=== PATIENT | female | born 1935 | race African-American/Black ===

== ENCOUNTER 2018-10-03 14:10 | Emergency (ER) | payer SELFPAY ==
[~2018-10-03] VITALS: Ht 149.9 cm; Wt 52.0 kg
[2018-10-03] MEDS ORDERED: AMLODIPINE 5MG TABLET PO ONE (16:15)
[2018-10-03] MEDS ORDERED: CLONIDINE 0.2MG TABLET PO ONE (18:15)
[2018-10-03 21:27] VITALS: BP 98/51
== END 2018-10-03 23:30 | disposition home or self-care (01) ==
LOC: ER 14:10
DX: M84.444A Pathological fracture, right finger(s), initial encounter for fracture (principal); I16.0 Hypertensive urgency; M19.90 Unspecified osteoarthritis, unspecified site; E11.9 Type 2 diabetes mellitus without complications; I25.119 Atherosclerotic heart disease of native coronary artery with unspecified angina pectoris; I50.9 Heart failure, unspecified; F03.90 Unspecified dementia, unspecified severity, without behavioral disturbance, psychotic disturbance, mood disturbance, and anxiety; Z88.0 Allergy status to penicillin
CPT/HCPCS: 29130; 73140; 99283

== ENCOUNTER 2018-10-06 20:05 | Inpatient (IN) | payer MEDICARE ==
[~2018-10-06] VITALS: Ht 157.5 cm; Wt 56.2 kg
[2018-10-06] MEDS ORDERED: SODIUM CHLORIDE 0.9% 1,000 ML IV ONE (21:24)
[2018-10-06 23:07] LABS: BASOPHILS % 0.3 % (0.0-2.0); HEMATOCRIT. 33.1 % (36.0-48.0); HEMOGLOBIN. 10.9 g/dL (12.0-16.0); MEAN CORPUSCULAR HEMOGLOBIN 29.1 pg (28.0-32.0); MEAN CORPUSCULAR VOLUME 88.4 fL (81.0-99.0); MEAN PLATELET VOLUME 8.6 fl (7.4-10.4); MONOCYTES % 2.2 % (2.0-8.0); NEUTROPHILS % 89.5 % (40.0-76.0); PLATELET 278 x1000/uL (130-400); RED BLOOD CELL COUNT 3.74 mill/uL (4.2-5.4); RED CELL DISTRIBUTION WIDTH 14.3 % (11.6-14.6)
[2018-10-06 23:10] LABS: CHLORIDE 106 mEq/L (98-107)
[2018-10-06] MEDS ORDERED: AZITHROMYCIN 500 MG in DEXT 5% WATER 250 ML IV NR (23:45)
[2018-10-06] MEDS ORDERED: SODIUM CHLORIDE 0.9% 1000ML BAG (SEPSIS BOLUS) IV NR (23:45)
[2018-10-06 23:58] LABS: CLARITY URINE TURBID (CLEAR); COLOR URINE YELLOW (YELLOW); KETONES URINE 1+ (NEGATIVE); LEUKOCYTE ESTERASE URINE 3+ (NEGATIVE); NITRITE URINE NEGATIVE (NEGATIVE); OCCULT BLOOD URINE 3+ (NEGATIVE); PROTEIN URINE 2+ (NEGATIVE); UROBILINOGEN URINE 0.2 E.U./dL (0.2-1.0)
[2018-10-07] VITALS (8 sets, daily range): BP systolic 109–169; BP diastolic 59–83
[2018-10-07] MEDS ORDERED: MEROPENEM 1,000 MG in SODIUM CHLORIDE 0.9% 100 ML IV SCH (01:30)
[2018-10-07] MEDS ORDERED: PANTOPRAZOLE 80 MG in SODIUM CHLORIDE 0.9% 100 ML IV SCH (02:00)
[2018-10-07] MEDS ORDERED: ONDANSETRON HCL 4MG/2ML INJ IM ONE (04:30)
[2018-10-07] MEDS ORDERED: DIPHENHYDRAMINE 50MG/ML VIAL IV PRN (04:45)
[2018-10-07] MEDS ORDERED: DEXTROSE 50% WATER 50ML SYRINGE IV PRN (04:45)
[2018-10-07] MEDS ORDERED: IPRATROPIUM/ALBUTEROL 0.5-3(2.5)MG/3ML NEB INH PRN (04:45)
[2018-10-07] MEDS ORDERED: GUAIFENESIN 200MG/10ML SUGAR FREE UDC PO PRN (04:45)
[2018-10-07] MEDS ORDERED: LORAZEPAM 2MG/ML CPJ IV PRN (04:45)
[2018-10-07] MEDS: BLOOD SUGAR DIAGNOSTIC STRIP TEST SCH ×4 (07:30→21:13)
[2018-10-07] MEDS: SODIUM CHLORIDE 0.9% 1,000 ML IV SCH ×2 (07:43→18:12)
[2018-10-07] MEDS: FAMOTIDINE 20MG/2ML VIAL IV SCH (08:38)
[2018-10-07] MEDS: ENOXAPARIN 30MG/0.3ML SYR SUBCUT SCH (08:39)
[2018-10-07] MEDS: INSULIN LISPRO 100 UNITS/ML SUBCUT SCH ×3 (08:54→21:00)
[2018-10-07] MEDS: MEROPENEM 1,000 MG in SODIUM CHLORIDE 0.9% 100 ML IV SCH (15:38)
[2018-10-07] MEDS: BISACODYL 10MG SUPP PR NR ×2 (20:15→22:29)
[2018-10-07] MEDS: ONDANSETRON HCL 4MG/2ML INJ IV PRN (22:01)
[2018-10-08] VITALS (12 sets, daily range): BP systolic 102–157; BP diastolic 38–69
[2018-10-08] MEDS: MEROPENEM 1,000 MG in SODIUM CHLORIDE 0.9% 100 ML IV SCH (02:33)
[2018-10-08] MEDS: SODIUM CHLORIDE 0.9% 1,000 ML IV SCH (02:33)
[2018-10-08] MEDS: ONDANSETRON HCL 4MG/2ML INJ IV PRN ×2 (04:09→08:17)
[2018-10-08] MEDS: BLOOD SUGAR DIAGNOSTIC STRIP TEST SCH ×4 (07:30→21:53)
[2018-10-08 07:33] LABS: BASOPHILS % 1.1 % (0.0-2.0); HEMATOCRIT. 30.5 % (36.0-48.0); LYMPHOCYTES % 13.5 % (20.0-50.0); MEAN CORPUSCULAR VOLUME 88.2 fL (81.0-99.0); MONOCYTES % 5.5 % (2.0-8.0); NEUTROPHILS % 79.9 % (40.0-76.0); PLATELET 266 x1000/uL (130-400); RED BLOOD CELL COUNT 3.45 mill/uL (4.2-5.4); RED CELL DISTRIBUTION WIDTH 14.6 % (11.6-14.6)
[2018-10-08] MEDS: INSULIN LISPRO 100 UNITS/ML SUBCUT SCH ×4 (08:00→21:55)
[2018-10-08 08:11] LABS: PHOSPHORUS 2.7 mg/dL (2.5-4.9)
[2018-10-08] MEDS: FAMOTIDINE 20MG/2ML VIAL IV SCH (08:17)
[2018-10-08] MEDS: ENOXAPARIN 30MG/0.3ML SYR SUBCUT SCH (08:17)
[2018-10-08] MEDS ORDERED: LEVOFLOXACIN 500MG PREMIX 100 ML IV SCH ×2 (13:15→16:00)
[2018-10-08] MEDS: DEXT 5%/0.2% NACL 1,000 ML IV SCH (13:38)
[2018-10-08] MEDS: ACETAMINOPHEN 325MG TABLET PO PRN (21:57)
[2018-10-08] MEDS: INSULIN GLARGINE UD 100 UNITS/ML SYR SUBCUT SCH (22:24)
[2018-10-09] VITALS (12 sets, daily range): BP systolic 132–192; BP diastolic 45–81
[2018-10-09] MEDS: ONDANSETRON HCL 4MG/2ML INJ IV PRN ×2 (00:46→13:54)
[2018-10-09] MEDS: DEXT 5%/0.2% NACL 1,000 ML IV SCH ×2 (04:29→17:36)
[2018-10-09] MEDS: ACETAMINOPHEN 325MG TABLET PO PRN ×2 (04:29→08:41)
[2018-10-09] MEDS: BLOOD SUGAR DIAGNOSTIC STRIP TEST SCH ×4 (07:30→21:51)
[2018-10-09] MEDS: FAMOTIDINE 20MG/2ML VIAL IV SCH (08:32)
[2018-10-09] MEDS: ENOXAPARIN 30MG/0.3ML SYR SUBCUT SCH (08:32)
[2018-10-09] MEDS: INSULIN LISPRO 100 UNITS/ML SUBCUT SCH ×4 (08:35→21:59)
[2018-10-09] MEDS: LEVOFLOXACIN 250MG PREMIX 50 ML IV SCH (10:16)
[2018-10-09] MEDS ORDERED: HYDRALAZINE 20MG/ML VIAL IV PRN (11:00)
[2018-10-09] MEDS ORDERED: POTASSIUM CHLORIDE 20MEQ/PACKET PO NR (16:00)
[2018-10-09] MEDS: INSULIN GLARGINE UD 100 UNITS/ML SYR SUBCUT SCH (21:58)
[2018-10-09] MEDS: HYDRALAZINE HCL 25MG TABLET PO SCH (22:00)
[2018-10-10] VITALS (10 sets, daily range): BP systolic 90–127; BP diastolic 42–59
[2018-10-10] MEDS: DEXT 5%/0.2% NACL 1,000 ML IV SCH (06:49)
[2018-10-10] MEDS: HYDRALAZINE HCL 25MG TABLET PO SCH ×2 (06:50→13:15)
[2018-10-10] MEDS: BLOOD SUGAR DIAGNOSTIC STRIP TEST SCH ×3 (07:30→17:05)
[2018-10-10] MEDS: INSULIN LISPRO 100 UNITS/ML SUBCUT SCH ×3 (08:00→17:22)
[2018-10-10] MEDS: FAMOTIDINE 20MG/2ML VIAL IV SCH (09:23)
[2018-10-10] MEDS: ENOXAPARIN 30MG/0.3ML SYR SUBCUT SCH (09:24)
[2018-10-10] MEDS: ONDANSETRON HCL 4MG/2ML INJ IV PRN (11:06)
[2018-10-10] MEDS: LEVOFLOXACIN 250MG PREMIX 50 ML IV SCH (11:06)
[2018-10-11] MEDS ORDERED: HYDRALAZINE HCL 25MG TABLET PO SCH (02:00)
[2018-10-11] MEDS ORDERED: LEVOFLOXACIN 250MG TABLET PO SCH (11:00)
== END 2018-10-10 19:35 | DRG 720 ==
LOC: ER 22:37 → EDBD 23:49 → 5EST 23:49 → EDBEDREQ 23:55 → EDBEDREQTM 23:55 → EDBEDREQSVC 10-07 01:27 → EDBEDREQTM 10-07 01:27 → EDBEDREQSVC 10-07 01:48 → EDBEDREQTM 10-07 01:48 → ENRESERV 10-07 03:04
PROVIDERS: ADMIT Internal Medicine; ATTEND Internal Medicine
DX: A41.9 Sepsis, unspecified organism (principal); E43 Unspecified severe protein-calorie malnutrition; N17.9 Acute kidney failure, unspecified; I50.9 Heart failure, unspecified; I11.0 Hypertensive heart disease with heart failure; E87.0 Hyperosmolality and hypernatremia; E11.9 Type 2 diabetes mellitus without complications; F03.90 Unspecified dementia, unspecified severity, without behavioral disturbance, psychotic disturbance, mood disturbance, and anxiety; N39.0 Urinary tract infection, site not specified; K56.41 Fecal impaction; R47.02 Dysphasia; I25.10 Atherosclerotic heart disease of native coronary artery without angina pectoris; M19.90 Unspecified osteoarthritis, unspecified site; Z90.49 Acquired absence of other specified parts of digestive tract; Z88.0 Allergy status to penicillin; Z86.14 Personal history of Methicillin resistant Staphylococcus aureus infection
CPT/HCPCS: 36415; 71045; 74177; 80048; 82962; 83605; 83735; 83880; 84100; 84145; 84484; 86850; 86900; 87077; 92610; 93005; 93970; 96365; 99291; C9113; J0360; J0456; J1650; J1815; J1956; J2185; J2405; J3490; J7030; J7050; J7060

== ENCOUNTER 2018-11-09 16:27 | Emergency (ER) | payer MEDICARE, MEDICAID ==
[~2018-11-09] VITALS: Ht 152.4 cm; Wt 65.0 kg
[2018-11-09 21:33] VITALS: BP 145/49
== END 2018-11-09 21:35 ==
LOC: ER 16:27 → SUPCPDRO 11-10 07:09
DX: M19.032 Primary osteoarthritis, left wrist (principal); I50.9 Heart failure, unspecified; E11.9 Type 2 diabetes mellitus without complications; F03.90 Unspecified dementia, unspecified severity, without behavioral disturbance, psychotic disturbance, mood disturbance, and anxiety; I25.10 Atherosclerotic heart disease of native coronary artery without angina pectoris; Z88.0 Allergy status to penicillin
CPT/HCPCS: 73110; 99283

== ENCOUNTER 2019-09-11 11:36 | Inpatient (IN) | payer MEDICARE, MEDICAID ==
[~2019-09-11] VITALS: Ht 149.9 cm; Wt 53.1 kg
[2019-09-11 12:35] LABS: BASOPHILS % 1.1 % (0.0-2.0); HEMATOCRIT. 39.4 % (36.0-48.0); HEMOGLOBIN. 12.7 g/dL (12.0-16.0); LYMPHOCYTES % 20.4 % (20.0-50.0); MEAN CORPUSCULAR HEMOGLOBIN 27.7 pg (28.0-32.0); MEAN CORPUSCULAR VOLUME 85.8 fL (81.0-99.0); MEAN PLATELET VOLUME 9.2 fl (7.4-10.4); MONOCYTES % 9.6 % (2.0-8.0); NEUTROPHILS % 67.9 % (40.0-76.0); PLATELET 253 x1000/uL (130-400); RED BLOOD CELL COUNT 4.59 mill/uL (4.2-5.4); RED CELL DISTRIBUTION WIDTH 14.8 % (11.6-14.6)
[2019-09-11 12:38] LABS: PROTHROMBIN TIME 10.7 sec (9.6-11.0)
[2019-09-11 12:39] LABS: CHLORIDE 109 mEq/L (98-107)
[2019-09-11 13:15] LABS: CLARITY URINE TURBID (CLEAR); COLOR URINE YELLOW (YELLOW); KETONES URINE NEGATIVE (NEGATIVE); LEUKOCYTE ESTERASE URINE 3+ (NEGATIVE); NITRITE URINE NEGATIVE (NEGATIVE); OCCULT BLOOD URINE 3+ (NEGATIVE); PH URINE 7.5 (4.5-8.0); PROTEIN URINE 3+ (NEGATIVE); SPECIFIC GRAVITY URINE 1.013 (1.005-1.030)
[2019-09-11] MEDS: SODIUM CHLORIDE 0.9% 1,000 ML IV SCH ×2 (13:24→17:40)
[2019-09-11] MEDS ORDERED: DOCUSATE SODIUM 100MG CAPSULE PO PRN (13:30)
[2019-09-11] MEDS ORDERED: IPRATROPIUM/ALBUTEROL 0.5-3(2.5)MG/3ML NEB ORI PRN (13:30)
[2019-09-11] MEDS ORDERED: MEROPENEM 1,000 MG in SODIUM CHLORIDE 0.9% 100 ML IV SCH (13:30)
[2019-09-11] MEDS ORDERED: MAGNESIUM/ALUMINUM HYDROXIDE/SIMETHICONE 30ML UDC PO PRN (13:30)
[2019-09-11] MEDS ORDERED: NITROGLYCERIN 0.4MG TABLET SL SL PRN (13:30)
[2019-09-11] MEDS ORDERED: ACETAMINOPHEN 325MG TABLET PO PRN (13:30)
[2019-09-11] MEDS ORDERED: GUAIFENESIN 200MG/10ML SUGAR FREE UDC PO PRN (13:30)
[2019-09-11] MEDS ORDERED: ENOXAPARIN 40MG/0.4ML SYR SUBCUT SCH (13:30)
[2019-09-11] MEDS ORDERED: DEXTROSE 50% WATER 50ML SYRINGE IV PRN (13:30)
[2019-09-11] MEDS ORDERED: LEVOFLOXACIN 750MG PREMIX 150 ML IV ONE (13:45)
[2019-09-11 13:55] LABS: TOTAL IRON BINDING CAPACITY 101 ug/dL (250-450)
[2019-09-11 14:12] LABS: FOLIC ACID (FOLATE) SERUM 15.6 ng/mL (>5.38)
[2019-09-11 14:20] VITALS: BP 128/78
[2019-09-11 16:15] VITALS: BP 128/78
[2019-09-11 16:30] VITALS: BP 132/80
[2019-09-11] MEDS: BLOOD SUGAR DIAGNOSTIC STRIP TEST SCH ×2 (17:30→21:00)
[2019-09-11] MEDS: INSULIN LISPRO 100 UNITS/ML SUBCUT SCH ×2 (17:34→21:00)
[2019-09-11 20:00] VITALS: BP 131/59
[2019-09-11] MEDS: ENOXAPARIN 30MG/0.3ML SYR SUBCUT SCH (20:00)
[2019-09-11] MEDS ORDERED: VANCOMYCIN 750 MG PREMIX 150 ML IV SCH (20:00)
[2019-09-11] MEDS: MEROPENEM 500MG in NORMAL SALINE 50ML IV SCH (22:03)
[2019-09-11] MEDS: ASCORBIC ACID 500 MG TABLET PO SCH (22:04)
[2019-09-12 00:01] VITALS: BP 128/50
[2019-09-12 04:00] VITALS: BP 141/56
[2019-09-12] MEDS: BLOOD SUGAR DIAGNOSTIC STRIP TEST SCH ×4 (06:45→20:45)
[2019-09-12] MEDS: INSULIN LISPRO 100 UNITS/ML SUBCUT SCH ×4 (06:45→21:00)
[2019-09-12] MEDS: SODIUM CHLORIDE 0.9% 1,000 ML IV SCH (06:46)
[2019-09-12] MEDS: MEROPENEM 500MG in NORMAL SALINE 50ML IV SCH ×2 (06:46→18:36)
[2019-09-12 08:00] VITALS: BP 128/57
[2019-09-12] MEDS: PANTOPRAZOLE SODIUM 40 MG/VIAL IV SCH (08:51)
[2019-09-12] MEDS: CLOPIDOGREL 75MG TABLET PO SCH (08:52)
[2019-09-12] MEDS: ZINC SULFATE 220 MG ( 50 ) CAPSULE PO SCH (08:52)
[2019-09-12] MEDS: ASCORBIC ACID 500 MG TABLET PO SCH ×2 (08:52→20:44)
[2019-09-12] MEDS: ONDANSETRON HCL 4MG/2ML INJ IV PRN (09:49)
[2019-09-12 12:00] VITALS: BP 126/47
[2019-09-12 16:00] VITALS: BP 164/71
[2019-09-12 20:00] VITALS: BP 155/67
[2019-09-12] MEDS: ENOXAPARIN 30MG/0.3ML SYR SUBCUT SCH (20:23)
[2019-09-12] MEDS: GUAIFENESIN 600MG ER TABLET PO SCH (20:44)
[2019-09-13] VITALS: BP 182/72
[2019-09-13 04:00] VITALS: BP 158/65
[2019-09-13] MEDS: MEROPENEM 500MG in NORMAL SALINE 50ML IV SCH ×2 (06:39→18:02)
[2019-09-13] MEDS: BLOOD SUGAR DIAGNOSTIC STRIP TEST SCH ×4 (06:40→22:05)
[2019-09-13] MEDS: INSULIN LISPRO 100 UNITS/ML SUBCUT SCH ×4 (06:48→21:00)
[2019-09-13 07:55] LABS: COVID-19 PCR RNA DETECTED
[2019-09-13 07:57] LABS: COVID-19 PCR RNA DETECTED
[2019-09-13 08:00] VITALS: BP 184/81
[2019-09-13 08:31] LABS: HEMATOCRIT. 29.9 % (36.0-48.0); HEMOGLOBIN. 9.7 g/dL (12.0-16.0); MEAN CORPUSCULAR HEMOGLOBIN 27.6 pg (28.0-32.0); MEAN CORPUSCULAR VOLUME 85.5 fL (81.0-99.0); MEAN PLATELET VOLUME 9.8 fl (7.4-10.4); PLATELET 189 x1000/uL (130-400); RED CELL DISTRIBUTION WIDTH 14.6 % (11.6-14.6)
[2019-09-13 08:37] LABS: CHLORIDE 119 mEq/L (98-107)
[2019-09-13] MEDS: PANTOPRAZOLE SODIUM 40 MG/VIAL IV SCH (09:33)
[2019-09-13] MEDS: CLONIDINE 0.1MG TABLET PO PRN (09:33)
[2019-09-13] MEDS: GUAIFENESIN 600MG ER TABLET PO SCH ×2 (09:34→22:05)
[2019-09-13] MEDS: ASCORBIC ACID 500 MG TABLET PO SCH ×2 (09:34→22:05)
[2019-09-13] MEDS: ZINC SULFATE 220 MG ( 50 ) CAPSULE PO SCH (09:34)
[2019-09-13] MEDS: CLOPIDOGREL 75MG TABLET PO SCH (09:34)
[2019-09-13 09:50] LABS: PLATELET ESTIMATE NORMAL
[2019-09-13 12:00] VITALS: BP 152/59
[2019-09-13 16:00] VITALS: BP 158/68
[2019-09-13] MEDS: SODIUM CHLORIDE 0.9% 1,000 ML IV SCH (18:08)
[2019-09-13 20:00] VITALS: BP 136/59
[2019-09-13] MEDS: ENOXAPARIN 30MG/0.3ML SYR SUBCUT SCH (22:05)
[2019-09-14] VITALS: BP 142/64
[2019-09-14] MEDS: SODIUM CHLORIDE 0.9% 1,000 ML IV SCH ×3 (00:45→22:30)
[2019-09-14 04:00] VITALS: BP 118/56
[2019-09-14] MEDS: BLOOD SUGAR DIAGNOSTIC STRIP TEST SCH ×4 (06:06→22:30)
[2019-09-14] MEDS: MEROPENEM 500MG in NORMAL SALINE 50ML IV SCH ×2 (06:06→18:07)
[2019-09-14] MEDS: INSULIN LISPRO 100 UNITS/ML SUBCUT SCH ×4 (07:38→22:50)
[2019-09-14 08:00] VITALS: BP 151/59
[2019-09-14] MEDS: ZINC SULFATE 220 MG ( 50 ) CAPSULE PO SCH (10:16)
[2019-09-14] MEDS: CLOPIDOGREL 75MG TABLET PO SCH (10:16)
[2019-09-14] MEDS: ASCORBIC ACID 500 MG TABLET PO SCH ×2 (10:16→22:32)
[2019-09-14] MEDS: GUAIFENESIN 600MG ER TABLET PO SCH ×2 (10:16→22:30)
[2019-09-14] MEDS: PANTOPRAZOLE SODIUM 40 MG/VIAL IV SCH (10:16)
[2019-09-14 12:00] VITALS: BP 170/60
[2019-09-14] MEDS: CLONIDINE 0.1MG TABLET PO PRN (14:36)
[2019-09-14 16:00] VITALS: BP 124/53
[2019-09-14 20:00] VITALS: BP 151/64
[2019-09-14] MEDS: ENOXAPARIN 30MG/0.3ML SYR SUBCUT SCH (22:29)
[2019-09-15] VITALS (7 sets, daily range): BP systolic 134–190; BP diastolic 55–80
[2019-09-15] MEDS: BLOOD SUGAR DIAGNOSTIC STRIP TEST SCH ×4 (05:58→22:10)
[2019-09-15] MEDS: CLONIDINE 0.1MG TABLET PO PRN ×2 (05:58→13:34)
[2019-09-15] MEDS: SODIUM CHLORIDE 0.9% 1,000 ML IV SCH ×2 (06:01→17:24)
[2019-09-15] MEDS: ASCORBIC ACID 500 MG TABLET PO SCH ×2 (09:50→21:55)
[2019-09-15] MEDS: GUAIFENESIN 600MG ER TABLET PO SCH ×2 (09:50→21:55)
[2019-09-15] MEDS: CLOPIDOGREL 75MG TABLET PO SCH (09:51)
[2019-09-15] MEDS: ZINC SULFATE 220 MG ( 50 ) CAPSULE PO SCH (09:51)
[2019-09-15] MEDS: INSULIN LISPRO 100 UNITS/ML SUBCUT SCH ×4 (09:53→21:00)
[2019-09-15] MEDS: ENOXAPARIN 30MG/0.3ML SYR SUBCUT SCH (21:56)
[2019-09-16] VITALS: BP 160/66
[2019-09-16] MEDS: SODIUM CHLORIDE 0.9% 1,000 ML IV SCH ×2 (03:24→12:45)
[2019-09-16 04:00] VITALS: BP 150/60
[2019-09-16] MEDS: BLOOD SUGAR DIAGNOSTIC STRIP TEST SCH ×4 (05:58→21:00)
[2019-09-16] MEDS: INSULIN LISPRO 100 UNITS/ML SUBCUT SCH ×3 (08:10→18:03)
[2019-09-16] MEDS: ASCORBIC ACID 500 MG TABLET PO SCH ×2 (09:52→22:02)
[2019-09-16] MEDS: CLOPIDOGREL 75MG TABLET PO SCH (09:52)
[2019-09-16] MEDS: ZINC SULFATE 220 MG ( 50 ) CAPSULE PO SCH (09:52)
[2019-09-16] MEDS: GUAIFENESIN 600MG ER TABLET PO SCH ×2 (09:52→22:03)
[2019-09-16] MEDS: FAMOTIDINE 20MG TABLET PO SCH (09:52)
[2019-09-16 12:00] VITALS: BP 153/78
[2019-09-16 16:00] VITALS: BP 160/72
[2019-09-16] MEDS: CLONIDINE 0.1MG TABLET PO PRN (17:58)
[2019-09-16 20:00] VITALS: BP 146/69
[2019-09-16] MEDS: ENOXAPARIN 30MG/0.3ML SYR SUBCUT SCH (22:03)
[2019-09-17] VITALS: BP 144/62
[2019-09-17] MEDS: INSULIN LISPRO 100 UNITS/ML SUBCUT SCH ×5 (00:15→21:00)
[2019-09-17 04:00] VITALS: BP 162/61
[2019-09-17] MEDS: BLOOD SUGAR DIAGNOSTIC STRIP TEST SCH ×4 (06:17→20:55)
[2019-09-17 08:00] VITALS: BP 219/92
[2019-09-17] MEDS: GUAIFENESIN 600MG ER TABLET PO SCH ×2 (08:45→20:45)
[2019-09-17] MEDS: CLOPIDOGREL 75MG TABLET PO SCH (08:45)
[2019-09-17] MEDS: ASCORBIC ACID 500 MG TABLET PO SCH ×2 (08:45→20:46)
[2019-09-17] MEDS: ZINC SULFATE 220 MG ( 50 ) CAPSULE PO SCH (08:45)
[2019-09-17] MEDS: FAMOTIDINE 20MG TABLET PO SCH (08:46)
[2019-09-17] MEDS: CLONIDINE 0.1MG TABLET PO PRN (09:04)
[2019-09-17] MEDS: AMLODIPINE 10MG TABLET PO SCH (09:30)
[2019-09-17 12:00] VITALS: BP 83/27
[2019-09-17 16:00] VITALS: BP 190/82
[2019-09-17 20:00] VITALS: BP 198/78
[2019-09-17] MEDS: ENOXAPARIN 30MG/0.3ML SYR SUBCUT SCH (20:45)
[2019-09-18] VITALS: BP 197/82
[2019-09-18 04:00] VITALS: BP 194/75
[2019-09-18] MEDS: BLOOD SUGAR DIAGNOSTIC STRIP TEST SCH ×4 (06:35→22:07)
[2019-09-18 08:00] VITALS: BP 196/82
[2019-09-18] MEDS: INSULIN LISPRO 100 UNITS/ML SUBCUT SCH ×4 (08:10→21:00)
[2019-09-18] MEDS: GUAIFENESIN 600MG ER TABLET PO SCH ×2 (09:18→22:06)
[2019-09-18] MEDS: FAMOTIDINE 20MG TABLET PO SCH (09:18)
[2019-09-18] MEDS: ZINC SULFATE 220 MG ( 50 ) CAPSULE PO SCH (09:18)
[2019-09-18] MEDS: CLOPIDOGREL 75MG TABLET PO SCH (09:18)
[2019-09-18] MEDS: ASCORBIC ACID 500 MG TABLET PO SCH ×2 (09:18→22:06)
[2019-09-18] MEDS: AMLODIPINE 10MG TABLET PO SCH (09:21)
[2019-09-18 12:00] VITALS: BP 204/80
[2019-09-18 16:00] VITALS: BP 189/74
[2019-09-18] MEDS: CLONIDINE 0.1MG TABLET PO PRN (18:16)
[2019-09-18 20:00] VITALS: BP 143/62
[2019-09-18] MEDS: ENOXAPARIN 30MG/0.3ML SYR SUBCUT SCH (20:06)
[2019-09-18] MEDS: NYSTATIN POWDER 15GM TOP SCH (22:07)
[2019-09-19 00:48] VITALS: BP 172/71
[2019-09-19] MEDS: CLONIDINE 0.1MG TABLET PO PRN (01:42)
[2019-09-19 04:00] VITALS: BP 151/68
[2019-09-19] MEDS: BLOOD SUGAR DIAGNOSTIC STRIP TEST SCH ×4 (07:40→21:00)
[2019-09-19 08:00] VITALS: BP 155/65
[2019-09-19] MEDS: INSULIN LISPRO 100 UNITS/ML SUBCUT SCH ×4 (08:10→21:00)
[2019-09-19] MEDS: FAMOTIDINE 20MG TABLET PO SCH (09:21)
[2019-09-19] MEDS: CLOPIDOGREL 75MG TABLET PO SCH (09:21)
[2019-09-19] MEDS: GUAIFENESIN 600MG ER TABLET PO SCH ×2 (09:21→21:50)
[2019-09-19] MEDS: ZINC SULFATE 220 MG ( 50 ) CAPSULE PO SCH (09:21)
[2019-09-19] MEDS: AMLODIPINE 10MG TABLET PO SCH (09:21)
[2019-09-19] MEDS: ASCORBIC ACID 500 MG TABLET PO SCH ×2 (09:21→21:50)
[2019-09-19] MEDS: NYSTATIN POWDER 15GM TOP SCH ×3 (09:22→18:07)
[2019-09-19 12:00] VITALS: BP 190/82
[2019-09-19 16:00] VITALS: BP 165/86
[2019-09-19 20:00] VITALS: BP 138/57
[2019-09-19] MEDS: ENOXAPARIN 30MG/0.3ML SYR SUBCUT SCH (21:50)
[2019-09-20] VITALS: BP 154/79
[2019-09-20 04:00] VITALS: BP 175/73
[2019-09-20] MEDS: BLOOD SUGAR DIAGNOSTIC STRIP TEST SCH ×4 (06:20→20:10)
[2019-09-20] MEDS: CLONIDINE 0.1MG TABLET PO PRN (06:20)
[2019-09-20 08:00] VITALS: BP 140/64
[2019-09-20] MEDS: INSULIN LISPRO 100 UNITS/ML SUBCUT SCH ×4 (08:10→20:19)
[2019-09-20] MEDS: NYSTATIN POWDER 15GM TOP SCH ×3 (09:28→17:56)
[2019-09-20] MEDS: CLOPIDOGREL 75MG TABLET PO SCH (09:28)
[2019-09-20] MEDS: GUAIFENESIN 600MG ER TABLET PO SCH ×2 (09:28→20:19)
[2019-09-20] MEDS: AMLODIPINE 10MG TABLET PO SCH (09:28)
[2019-09-20] MEDS: ASCORBIC ACID 500 MG TABLET PO SCH ×2 (09:28→20:18)
[2019-09-20] MEDS: ZINC SULFATE 220 MG ( 50 ) CAPSULE PO SCH (09:28)
[2019-09-20] MEDS: FAMOTIDINE 20MG TABLET PO SCH (09:28)
[2019-09-20 12:00] VITALS: BP 132/69
[2019-09-20] MEDS: ONDANSETRON HCL 4MG/2ML INJ IV PRN (15:43)
[2019-09-20 16:00] VITALS: BP 124/63
[2019-09-20 20:00] VITALS: BP 159/78
[2019-09-20] MEDS: ENOXAPARIN 30MG/0.3ML SYR SUBCUT SCH (20:18)
[2019-09-21] MEDS: CLONIDINE 0.1MG TABLET PO PRN (00:13)
[2019-09-21 00:55] VITALS: BP 171/70
[2019-09-21 04:00] VITALS: BP 151/58
[2019-09-21] MEDS: BLOOD SUGAR DIAGNOSTIC STRIP TEST SCH ×4 (07:44→20:47)
[2019-09-21 08:00] VITALS: BP 154/88
[2019-09-21] MEDS: NYSTATIN POWDER 15GM TOP SCH ×3 (09:25→16:52)
[2019-09-21] MEDS: AMLODIPINE 10MG TABLET PO SCH (09:25)
[2019-09-21] MEDS: GUAIFENESIN 600MG ER TABLET PO SCH ×2 (09:25→20:23)
[2019-09-21] MEDS: FAMOTIDINE 20MG TABLET PO SCH (09:26)
[2019-09-21] MEDS: CLOPIDOGREL 75MG TABLET PO SCH (09:26)
[2019-09-21] MEDS: ZINC SULFATE 220 MG ( 50 ) CAPSULE PO SCH (09:26)
[2019-09-21] MEDS: ASCORBIC ACID 500 MG TABLET PO SCH ×3 (09:26→20:44)
[2019-09-21] MEDS: INSULIN LISPRO 100 UNITS/ML SUBCUT SCH ×4 (09:28→20:46)
[2019-09-21 12:00] VITALS: BP 164/70
[2019-09-21 16:00] VITALS: BP 109/73
[2019-09-21] MEDS: ENOXAPARIN 30MG/0.3ML SYR SUBCUT SCH (20:23)
[2019-09-21 20:53] VITALS: BP 164/74
[2019-09-22 00:35] VITALS: BP 143/62
[2019-09-22 04:00] VITALS: BP 135/62
[2019-09-22 04:47] LABS: BASOPHILS % 1.2 % (0.0-2.0); EOSINOPHILS % 0.7 % (0.0-5.0); HEMOGLOBIN. 9.8 g/dL (12.0-16.0); LYMPHOCYTES % 18.1 % (20.0-50.0); MEAN CORPUSCULAR HEMOGLOBIN 28.2 pg (28.0-32.0); MEAN CORPUSCULAR VOLUME 83.8 fL (81.0-99.0); MEAN PLATELET VOLUME 9.3 fl (7.4-10.4); MONOCYTES % 7.8 % (2.0-8.0); NEUTROPHILS % 72.2 % (40.0-76.0); PLATELET 215 x1000/uL (130-400); RED BLOOD CELL COUNT 3.45 mill/uL (4.2-5.4); RED CELL DISTRIBUTION WIDTH 15.6 % (11.6-14.6)
[2019-09-22 04:56] LABS: CHLORIDE 119 mEq/L (98-107)
[2019-09-22 05:08] LABS: PHOSPHORUS 2.4 mg/dL (2.5-4.9)
[2019-09-22] MEDS: BLOOD SUGAR DIAGNOSTIC STRIP TEST SCH ×4 (06:34→21:52)
[2019-09-22 08:00] VITALS: BP 156/67
[2019-09-22] MEDS: NYSTATIN POWDER 15GM TOP SCH ×3 (09:00→16:28)
[2019-09-22] MEDS ORDERED: SODIUM PHOS,M-BASIC-D-BASIC 15 MM in DEXT 5% WATER 245 ML IV SCH (09:00)
[2019-09-22] MEDS ORDERED: MAGNESIUM 4 G PREMIX 100 ML IV SCH (09:00)
[2019-09-22] MEDS: GUAIFENESIN 600MG ER TABLET PO SCH ×2 (09:12→21:52)
[2019-09-22] MEDS: FAMOTIDINE 20MG TABLET PO SCH (09:12)
[2019-09-22] MEDS: CLOPIDOGREL 75MG TABLET PO SCH (09:12)
[2019-09-22] MEDS: AMLODIPINE 10MG TABLET PO SCH (09:13)
[2019-09-22] MEDS: INSULIN LISPRO 100 UNITS/ML SUBCUT SCH ×4 (09:15→22:13)
[2019-09-22] MEDS: ZINC SULFATE 220 MG ( 50 ) CAPSULE PO SCH (09:18)
[2019-09-22 12:00] VITALS: BP 159/76
[2019-09-22] MEDS ORDERED: LIDOCAINE HCL 1% 20ML VIAL (Pyxis) INJ ONE (13:45)
[2019-09-22] MEDS: SODIUM CHLORIDE 45ML SPRAY NS SCH ×2 (15:11→20:00)
[2019-09-22 16:00] VITALS: BP 133/65
[2019-09-22 20:00] VITALS: BP 125/53
[2019-09-22] MEDS: ASCORBIC ACID 500 MG TABLET PO SCH (21:51)
[2019-09-22] MEDS: ENOXAPARIN 30MG/0.3ML SYR SUBCUT SCH (21:51)
[2019-09-23] VITALS: BP 112/52
[2019-09-23] MEDS: SODIUM CHLORIDE 45ML SPRAY NS SCH ×4 (02:00→21:13)
[2019-09-23 04:00] VITALS: BP 120/60
[2019-09-23 05:45] LABS: CHLORIDE 119 mEq/L (98-107)
[2019-09-23 05:51] LABS: PHOSPHORUS 2.7 mg/dL (2.5-4.9)
[2019-09-23 06:15] LABS: EOSINOPHILS % 0.4 % (0.0-5.0); HEMATOCRIT. 25.3 % (36.0-48.0); HEMOGLOBIN. 8.5 g/dL (12.0-16.0); LYMPHOCYTES % 15.7 % (20.0-50.0); MEAN CORPUSCULAR VOLUME 83.4 fL (81.0-99.0); MEAN PLATELET VOLUME 9.7 fl (7.4-10.4); MONOCYTES % 7.8 % (2.0-8.0); NEUTROPHILS % 75.1 % (40.0-76.0); PLATELET 165 x1000/uL (130-400); RED BLOOD CELL COUNT 3.03 mill/uL (4.2-5.4); RED CELL DISTRIBUTION WIDTH 15.4 % (11.6-14.6)
[2019-09-23 08:00] VITALS: BP 152/90
[2019-09-23] MEDS: BLOOD SUGAR DIAGNOSTIC STRIP TEST SCH ×4 (08:03→21:08)
[2019-09-23] MEDS: CLONIDINE 0.1MG TABLET PO PRN (08:46)
[2019-09-23] MEDS: ASCORBIC ACID 500 MG TABLET PO SCH ×2 (08:46→21:07)
[2019-09-23] MEDS: AMLODIPINE 10MG TABLET PO SCH (08:46)
[2019-09-23] MEDS: CLOPIDOGREL 75MG TABLET PO SCH (08:46)
[2019-09-23] MEDS: ZINC SULFATE 220 MG ( 50 ) CAPSULE PO SCH (08:46)
[2019-09-23] MEDS: FAMOTIDINE 20MG TABLET PO SCH (08:46)
[2019-09-23] MEDS: GUAIFENESIN 600MG ER TABLET PO SCH ×2 (08:46→21:07)
[2019-09-23] MEDS: NYSTATIN POWDER 15GM TOP SCH ×3 (08:47→16:25)
[2019-09-23] MEDS: INSULIN LISPRO 100 UNITS/ML SUBCUT SCH ×4 (08:56→21:26)
[2019-09-23 12:00] VITALS: BP 124/58
[2019-09-23 16:00] VITALS: BP 135/58
[2019-09-23 20:00] VITALS: BP 137/55
[2019-09-23] MEDS: ENOXAPARIN 30MG/0.3ML SYR SUBCUT SCH (20:40)
[2019-09-24] VITALS: BP 141/61
[2019-09-24] MEDS: SODIUM CHLORIDE 45ML SPRAY NS SCH ×4 (02:02→22:06)
[2019-09-24 04:00] VITALS: BP 127/56
[2019-09-24] MEDS: BLOOD SUGAR DIAGNOSTIC STRIP TEST SCH ×4 (07:40→22:04)
[2019-09-24 08:00] VITALS: BP 132/55
[2019-09-24] MEDS: INSULIN LISPRO 100 UNITS/ML SUBCUT SCH ×4 (08:10→21:00)
[2019-09-24] MEDS: ASCORBIC ACID 500 MG TABLET PO SCH ×2 (09:20→22:03)
[2019-09-24] MEDS: AMLODIPINE 10MG TABLET PO SCH (09:22)
[2019-09-24] MEDS: FAMOTIDINE 20MG TABLET PO SCH (09:23)
[2019-09-24] MEDS: ZINC SULFATE 220 MG ( 50 ) CAPSULE PO SCH (09:23)
[2019-09-24] MEDS: GUAIFENESIN 600MG ER TABLET PO SCH ×2 (09:23→22:03)
[2019-09-24] MEDS: NYSTATIN POWDER 15GM TOP SCH ×3 (09:23→18:29)
[2019-09-24] MEDS: CLOPIDOGREL 75MG TABLET PO SCH (09:23)
[2019-09-24 12:00] VITALS: BP 136/60
[2019-09-24 16:00] VITALS: BP 151/58
[2019-09-24 20:00] VITALS: BP 129/59
[2019-09-24] MEDS: ENOXAPARIN 30MG/0.3ML SYR SUBCUT SCH (22:04)
[2019-09-25] VITALS: BP 134/58
[2019-09-25] MEDS: SODIUM CHLORIDE 45ML SPRAY NS SCH ×5 (02:39→20:43)
[2019-09-25 04:00] VITALS: BP 144/66
[2019-09-25 04:46] LABS: CHLORIDE 116 mEq/L (98-107)
[2019-09-25 05:01] LABS: HEMATOCRIT. 28.2 % (36.0-48.0); HEMOGLOBIN. 9.2 g/dL (12.0-16.0); MEAN CORPUSCULAR HEMOGLOBIN 27.9 pg (28.0-32.0); MEAN CORPUSCULAR VOLUME 85.2 fL (81.0-99.0); MEAN PLATELET VOLUME 9.9 fl (7.4-10.4); PLATELET 202 x1000/uL (130-400); RED BLOOD CELL COUNT 3.31 mill/uL (4.2-5.4)
[2019-09-25] MEDS: BLOOD SUGAR DIAGNOSTIC STRIP TEST SCH ×4 (06:22→20:58)
[2019-09-25 06:55] LABS: PLATELET ESTIMATE NORMAL
[2019-09-25 08:00] VITALS: BP 111/43
[2019-09-25] MEDS: ASCORBIC ACID 500 MG TABLET PO SCH ×3 (09:00→20:58)
[2019-09-25] MEDS: ZINC SULFATE 220 MG ( 50 ) CAPSULE PO SCH ×2 (09:00→09:56)
[2019-09-25] MEDS: AMLODIPINE 10MG TABLET PO SCH ×2 (09:55→12:10)
[2019-09-25] MEDS: GUAIFENESIN 600MG ER TABLET PO SCH ×2 (09:56→12:09)
[2019-09-25] MEDS: CLOPIDOGREL 75MG TABLET PO SCH (09:56)
[2019-09-25] MEDS: FAMOTIDINE 20MG TABLET PO SCH (09:56)
[2019-09-25] MEDS: NYSTATIN POWDER 15GM TOP SCH ×3 (09:57→17:00)
[2019-09-25] MEDS: INSULIN LISPRO 100 UNITS/ML SUBCUT SCH ×4 (09:59→21:00)
[2019-09-25] MEDS: ACETAMINOPHEN 325MG TABLET PO PRN (11:48)
[2019-09-25 12:00] VITALS: BP 109/67
[2019-09-25 16:00] VITALS: BP 148/61
[2019-09-25 20:00] VITALS: BP 140/53
[2019-09-25] MEDS: ENOXAPARIN 30MG/0.3ML SYR SUBCUT SCH (20:43)
[2019-09-26] VITALS: BP 147/58
[2019-09-26] MEDS: SODIUM CHLORIDE 45ML SPRAY NS SCH ×4 (02:33→20:00)
[2019-09-26 04:00] VITALS: BP 131/56
[2019-09-26] MEDS: INSULIN LISPRO 100 UNITS/ML SUBCUT SCH ×4 (07:27→21:00)
[2019-09-26] MEDS: BLOOD SUGAR DIAGNOSTIC STRIP TEST SCH ×4 (07:27→21:00)
[2019-09-26 08:00] VITALS: BP 128/70
[2019-09-26] MEDS: ASCORBIC ACID 500 MG TABLET PO SCH ×2 (09:32→21:21)
[2019-09-26] MEDS: CLOPIDOGREL 75MG TABLET PO SCH (09:32)
[2019-09-26] MEDS: ZINC SULFATE 220 MG ( 50 ) CAPSULE PO SCH (09:32)
[2019-09-26] MEDS: FAMOTIDINE 20MG TABLET PO SCH (09:32)
[2019-09-26] MEDS: GUAIFENESIN 600MG ER TABLET PO SCH ×2 (09:32→21:21)
[2019-09-26] MEDS: NYSTATIN POWDER 15GM TOP SCH ×3 (09:32→17:15)
[2019-09-26 12:00] VITALS: BP 134/56
[2019-09-26 20:00] VITALS: BP 159/71
[2019-09-26] MEDS: ENOXAPARIN 30MG/0.3ML SYR SUBCUT SCH (21:22)
[2019-09-27] VITALS (7 sets, daily range): BP systolic 125–179; BP diastolic 61–77
[2019-09-27] MEDS: SODIUM CHLORIDE 45ML SPRAY NS SCH ×4 (02:00→21:34)
[2019-09-27] MEDS: BLOOD SUGAR DIAGNOSTIC STRIP TEST SCH ×4 (07:40→21:19)
[2019-09-27] MEDS: INSULIN LISPRO 100 UNITS/ML SUBCUT SCH ×4 (08:10→21:39)
[2019-09-27] MEDS: ZINC SULFATE 220 MG ( 50 ) CAPSULE PO SCH (09:42)
[2019-09-27] MEDS: CLOPIDOGREL 75MG TABLET PO SCH (09:42)
[2019-09-27] MEDS: ASCORBIC ACID 500 MG TABLET PO SCH ×2 (09:42→21:19)
[2019-09-27] MEDS: FAMOTIDINE 20MG TABLET PO SCH (09:42)
[2019-09-27] MEDS: AMLODIPINE 10MG TABLET PO SCH (09:43)
[2019-09-27] MEDS: GUAIFENESIN 600MG ER TABLET PO SCH ×2 (09:43→21:19)
[2019-09-27] MEDS: NYSTATIN POWDER 15GM TOP SCH ×3 (09:44→17:00)
[2019-09-27] MEDS: ACETAMINOPHEN 325MG TABLET PO PRN (11:13)
[2019-09-27] MEDS: CLONIDINE 0.1MG TABLET PO PRN (19:25)
[2019-09-27] MEDS: ENOXAPARIN 30MG/0.3ML SYR SUBCUT SCH (21:20)
[2019-09-28] VITALS: BP 103/73
[2019-09-28] MEDS: SODIUM CHLORIDE 45ML SPRAY NS SCH ×5 (01:30→21:02)
[2019-09-28 04:00] VITALS: BP 131/54
[2019-09-28] MEDS: BLOOD SUGAR DIAGNOSTIC STRIP TEST SCH ×4 (06:02→21:00)
[2019-09-28 08:00] VITALS: BP 123/61
[2019-09-28] MEDS: ASCORBIC ACID 500 MG TABLET PO SCH ×2 (08:41→20:58)
[2019-09-28] MEDS: CLOPIDOGREL 75MG TABLET PO SCH (08:41)
[2019-09-28] MEDS: FAMOTIDINE 20MG TABLET PO SCH (08:41)
[2019-09-28] MEDS: GUAIFENESIN 600MG ER TABLET PO SCH ×2 (08:41→20:58)
[2019-09-28] MEDS: ZINC SULFATE 220 MG ( 50 ) CAPSULE PO SCH (08:42)
[2019-09-28] MEDS: AMLODIPINE 10MG TABLET PO SCH (08:43)
[2019-09-28] MEDS: NYSTATIN POWDER 15GM TOP SCH ×3 (08:51→17:00)
[2019-09-28] MEDS: INSULIN LISPRO 100 UNITS/ML SUBCUT SCH ×4 (09:05→21:00)
[2019-09-28 12:00] VITALS: BP 104/47
[2019-09-28 16:00] VITALS: BP 128/54
[2019-09-28 20:00] VITALS: BP 135/70
[2019-09-28] MEDS: ENOXAPARIN 30MG/0.3ML SYR SUBCUT SCH (20:59)
[2019-09-29] VITALS: BP 134/60
[2019-09-29] MEDS: SODIUM CHLORIDE 45ML SPRAY NS SCH ×4 (01:07→22:35)
[2019-09-29 04:00] VITALS: BP 136/60
[2019-09-29] MEDS: BLOOD SUGAR DIAGNOSTIC STRIP TEST SCH ×4 (05:44→21:00)
[2019-09-29 08:00] VITALS: BP 146/61
[2019-09-29] MEDS: INSULIN LISPRO 100 UNITS/ML SUBCUT SCH ×4 (08:10→22:37)
[2019-09-29] MEDS: ASCORBIC ACID 500 MG TABLET PO SCH ×2 (09:08→22:07)
[2019-09-29] MEDS: FAMOTIDINE 20MG TABLET PO SCH (09:09)
[2019-09-29] MEDS: AMLODIPINE 10MG TABLET PO SCH (09:09)
[2019-09-29] MEDS: ACETAMINOPHEN 325MG TABLET PO PRN (09:09)
[2019-09-29] MEDS: GUAIFENESIN 600MG ER TABLET PO SCH ×2 (09:09→22:07)
[2019-09-29] MEDS: CLOPIDOGREL 75MG TABLET PO SCH (09:09)
[2019-09-29] MEDS: ZINC SULFATE 220 MG ( 50 ) CAPSULE PO SCH (09:09)
[2019-09-29] MEDS: NYSTATIN POWDER 15GM TOP SCH ×3 (09:10→17:57)
[2019-09-29 12:00] VITALS: BP 119/62
[2019-09-29 16:00] VITALS: BP 97/72
[2019-09-29 20:00] VITALS: BP 137/65
[2019-09-29] MEDS: ENOXAPARIN 30MG/0.3ML SYR SUBCUT SCH (22:07)
[2019-09-30] VITALS: BP 125/55
[2019-09-30] MEDS: SODIUM CHLORIDE 45ML SPRAY NS SCH ×4 (01:21→20:52)
[2019-09-30 04:00] VITALS: BP 122/75
[2019-09-30 04:01] LABS: CLARITY URINE TURBID (CLEAR); COLOR URINE RED (YELLOW); KETONES URINE NEGATIVE (NEGATIVE); LEUKOCYTE ESTERASE URINE 3+ (NEGATIVE); NITRITE URINE NEGATIVE (NEGATIVE); OCCULT BLOOD URINE 2+ (NEGATIVE); PH URINE 8.5 (4.5-8.0); PROTEIN URINE 3+ (NEGATIVE); SPECIFIC GRAVITY URINE 1.012 (1.005-1.030)
[2019-09-30 07:23] LABS: BASOPHILS % 0.6 % (0.0-2.0); EOSINOPHILS % 1.6 % (0.0-5.0); HEMOGLOBIN. 7.8 g/dL (12.0-16.0); LYMPHOCYTES % 18.8 % (20.0-50.0); MEAN CORPUSCULAR HEMOGLOBIN 28.2 pg (28.0-32.0); MEAN CORPUSCULAR VOLUME 86.8 fL (81.0-99.0); MEAN PLATELET VOLUME 10.5 fl (7.4-10.4); MONOCYTES % 10.9 % (2.0-8.0); NEUTROPHILS % 68.1 % (40.0-76.0); PLATELET 212 x1000/uL (130-400); RED BLOOD CELL COUNT 2.77 mill/uL (4.2-5.4); RED CELL DISTRIBUTION WIDTH 17.4 % (11.6-14.6)
[2019-09-30] MEDS: BLOOD SUGAR DIAGNOSTIC STRIP TEST SCH ×4 (07:24→21:09)
[2019-09-30] MEDS: INSULIN LISPRO 100 UNITS/ML SUBCUT SCH ×4 (07:25→22:16)
[2019-09-30 07:34] LABS: CHLORIDE 117 mEq/L (98-107)
[2019-09-30 07:55] LABS: CREATINE KINASE 19 IU/L (26-192)
[2019-09-30 08:00] VITALS: BP 135/54
[2019-09-30] MEDS: ASCORBIC ACID 500 MG TABLET PO SCH ×2 (09:29→20:51)
[2019-09-30] MEDS: ZINC SULFATE 220 MG ( 50 ) CAPSULE PO SCH (09:29)
[2019-09-30] MEDS: AMLODIPINE 10MG TABLET PO SCH (09:29)
[2019-09-30] MEDS: GUAIFENESIN 600MG ER TABLET PO SCH ×2 (09:29→20:51)
[2019-09-30] MEDS: CLOPIDOGREL 75MG TABLET PO SCH (09:29)
[2019-09-30] MEDS: FAMOTIDINE 20MG TABLET PO SCH (09:29)
[2019-09-30] MEDS: NYSTATIN POWDER 15GM TOP SCH ×3 (09:29→17:59)
[2019-09-30 12:00] VITALS: BP 120/53
[2019-09-30 16:00] VITALS: BP 143/58
[2019-09-30] MEDS: CEFTAZIDIME PENTAHYDRATE 1 G in DEXTROSE 5% WATER 50 ML IV SCH (17:59)
[2019-09-30 20:00] VITALS: BP 135/54
[2019-10-01] VITALS: BP 131/55
[2019-10-01] MEDS: SODIUM CHLORIDE 45ML SPRAY NS SCH ×4 (02:00→22:43)
[2019-10-01 04:00] VITALS: BP 142/60
[2019-10-01] MEDS: CEFTAZIDIME PENTAHYDRATE 1 G in DEXTROSE 5% WATER 50 ML IV SCH ×2 (05:27→17:00)
[2019-10-01] MEDS: BLOOD SUGAR DIAGNOSTIC STRIP TEST SCH ×4 (07:40→21:00)
[2019-10-01] MEDS: INSULIN LISPRO 100 UNITS/ML SUBCUT SCH ×4 (08:10→22:36)
[2019-10-01] MEDS: NYSTATIN POWDER 15GM TOP SCH ×3 (09:09→16:59)
[2019-10-01] MEDS: FAMOTIDINE 20MG TABLET PO SCH (09:09)
[2019-10-01] MEDS: CLOPIDOGREL 75MG TABLET PO SCH (09:09)
[2019-10-01] MEDS: ASCORBIC ACID 500 MG TABLET PO SCH ×2 (09:09→22:42)
[2019-10-01] MEDS: ZINC SULFATE 220 MG ( 50 ) CAPSULE PO SCH (09:09)
[2019-10-01] MEDS: AMLODIPINE 10MG TABLET PO SCH (09:09)
[2019-10-01] MEDS: GUAIFENESIN 600MG ER TABLET PO SCH ×2 (09:09→22:42)
[2019-10-01 12:03] VITALS: BP 138/54
[2019-10-01 16:00] VITALS: BP 142/62
[2019-10-01 20:00] VITALS: BP 133/61
[2019-10-02] VITALS: BP 140/64
[2019-10-02] MEDS: SODIUM CHLORIDE 45ML SPRAY NS SCH ×3 (02:00→13:07)
[2019-10-02 04:00] VITALS: BP 136/64
[2019-10-02] MEDS: BLOOD SUGAR DIAGNOSTIC STRIP TEST SCH ×2 (05:41→13:06)
[2019-10-02] MEDS: CEFTAZIDIME PENTAHYDRATE 1 G in DEXTROSE 5% WATER 50 ML IV SCH (05:53)
[2019-10-02 08:00] VITALS: BP 135/54
[2019-10-02] MEDS: NYSTATIN POWDER 15GM TOP SCH ×2 (09:45→13:00)
[2019-10-02] MEDS: FAMOTIDINE 20MG TABLET PO SCH (09:46)
[2019-10-02] MEDS: GUAIFENESIN 600MG ER TABLET PO SCH (09:46)
[2019-10-02] MEDS: ASCORBIC ACID 500 MG TABLET PO SCH (09:46)
[2019-10-02] MEDS: ZINC SULFATE 220 MG ( 50 ) CAPSULE PO SCH (09:46)
[2019-10-02] MEDS: AMLODIPINE 10MG TABLET PO SCH (09:46)
[2019-10-02] MEDS: CLOPIDOGREL 75MG TABLET PO SCH (09:46)
[2019-10-02] MEDS: INSULIN LISPRO 100 UNITS/ML SUBCUT SCH ×2 (10:54→13:06)
[2019-10-02 12:00] VITALS: BP 114/51
[2019-10-02 13:42] VITALS: BP 114/51
[2019-10-02 16:00] VITALS: BP 96/40
== END 2019-10-02 17:36 | DRG 720 ==
LOC: ER 11:36 → 7WST 13:11 → SUPCPDRO 13:20 → EDBEDREQ 13:24 → EDBEDREQSVC 13:49 → ENRESERV 13:52
PROVIDERS: ADMIT Internal Medicine; ATTEND Internal Medicine
PROC: 05HY33Z Insertion of Infusion Device into Upper Vein, Percutaneous Approach (ICD-10-PCS; principal; 2019-09-22)
PROC: B54MZZA Ultrasonography of Right Upper Extremity Veins, Guidance (ICD-10-PCS; 2019-09-22)
DX: A41.51 Sepsis due to Escherichia coli [E. coli] (principal); U07.1 COVID-19; J96.00 Acute respiratory failure, unspecified whether with hypoxia or hypercapnia; E43 Unspecified severe protein-calorie malnutrition; N17.0 Acute kidney failure with tubular necrosis; D64.9 Anemia, unspecified; E11.9 Type 2 diabetes mellitus without complications; A41.89 Other specified sepsis; E83.39 Other disorders of phosphorus metabolism; E83.42 Hypomagnesemia; I25.10 Atherosclerotic heart disease of native coronary artery without angina pectoris; F03.90 Unspecified dementia, unspecified severity, without behavioral disturbance, psychotic disturbance, mood disturbance, and anxiety; J12.89 Other viral pneumonia; A41.59 Other Gram-negative sepsis; R79.89 Other specified abnormal findings of blood chemistry; J20.8 Acute bronchitis due to other specified organisms; I50.43 Acute on chronic combined systolic (congestive) and diastolic (congestive) heart failure; M19.90 Unspecified osteoarthritis, unspecified site; G92 Toxic encephalopathy; N39.0 Urinary tract infection, site not specified; R62.7 Adult failure to thrive; E87.5 Hyperkalemia; Z74.01 Bed confinement status; Z88.0 Allergy status to penicillin; Z68.23 Body mass index [BMI] 23.0-23.9, adult; Z86.14 Personal history of Methicillin resistant Staphylococcus aureus infection
CPT/HCPCS: 36415; 71045; 74018; 76937; 80048; 80053; 80076; 81003; 82550; 82607; 82746; 82962; 83036; 83540; 83550; 83605; 83735; 84100; 84145; 84443; 84484; 85025; 87077; 87186; 87635; 87804; 93005; 99291; C1725; C9113; J0713; J1650; J1815; J1956; J2185; J2405; J3370; J3475; J3490; J7060; U0003-CS

== ENCOUNTER 2020-02-17 12:24 | Inpatient (IN) | payer MEDICARE, MEDICAID ==
[~2020-02-17] VITALS: Ht 149.9 cm; Wt 56.7 kg
[2020-02-17] MEDS ORDERED: NA PHOS,M-B/NA PHOS,DI-BA ENEMA 118ML PR PRN (16:00)
[2020-02-17] MEDS ORDERED: GUAIFENESIN 200MG/10ML SUGAR FREE UDC PO PRN (16:00)
[2020-02-17] MEDS ORDERED: ACETAMINOPHEN 325MG TABLET PO PRN ×2 (16:00)
[2020-02-17] MEDS ORDERED: NITROGLYCERIN 0.4MG TABLET SL SL PRN (16:00)
[2020-02-17] MEDS ORDERED: DOCUSATE SODIUM 100MG CAPSULE PO PRN (16:00)
[2020-02-17] MEDS ORDERED: ONDANSETRON HCL 4MG/2ML INJ IV PRN (16:00)
[2020-02-17] MEDS ORDERED: IPRATROPIUM/ALBUTEROL 0.5-3(2.5)MG/3ML NEB NEB PRN (16:00)
[2020-02-17] MEDS ORDERED: MAGNESIUM/ALUMINUM HYDROXIDE/SIMETHICONE 30ML UDC PO PRN (16:00)
[2020-02-17] MEDS ORDERED: AMPICILLIN SOD/SULBACTAM NA 3 G in SODIUM CHLORIDE 0.9% 100 ML IV SCH (17:00)
[2020-02-17] MEDS ORDERED: SODIUM CHLORIDE 0.9% 1,000 ML IV ONE (17:00)
[2020-02-17 17:42] LABS: HEMATOCRIT. 27.4 % (36.0-48.0); HEMOGLOBIN. 8.8 g/dL (12.0-16.0); MEAN CORPUSCULAR HEMOGLOBIN 27.1 pg (28.0-32.0); MEAN CORPUSCULAR VOLUME 83.9 fL (81.0-99.0); PLATELET 324 x1000/uL (130-400); RED BLOOD CELL COUNT 3.27 mill/uL (4.2-5.4); RED CELL DISTRIBUTION WIDTH 16.6 % (11.6-14.6)
[2020-02-17 17:51] LABS: INR 1.1; PROTHROMBIN TIME 11.4 sec (9.6-11.0)
[2020-02-17 18:07] LABS: CHLORIDE 108 mEq/L (98-107)
[2020-02-17 18:15] LABS: PLATELET ESTIMATE NORMAL
[2020-02-17] MEDS ORDERED: MEROPENEM 1,000 MG in SODIUM CHLORIDE 0.9% 100 ML IV SCH (18:15)
[2020-02-17] MEDS: DEXT 5%/LACTATED RINGERS 1,000 ML IV SCH (18:18)
[2020-02-17] MEDS: ENOXAPARIN 30MG/0.3ML SYR SUBCUT SCH (20:00)
[2020-02-17] MEDS ORDERED: ZOLPIDEM TARTRATE 5MG TABLET PO PRN (20:00)
[2020-02-17 20:33] LABS: CLARITY URINE TURBID (CLEAR); COLOR URINE YELLOW (YELLOW); KETONES URINE NEGATIVE (NEGATIVE); LEUKOCYTE ESTERASE URINE 3+ (NEGATIVE); NITRITE URINE NEGATIVE (NEGATIVE); OCCULT BLOOD URINE 2+ (NEGATIVE); PH URINE 7.5 (4.5-8.0); PROTEIN URINE 2+ (NEGATIVE); SPECIFIC GRAVITY URINE 1.017 (1.005-1.030); UROBILINOGEN URINE 0.2 E.U./dL (0.2-1.0)
[2020-02-17] MEDS: ASCORBIC ACID 500 MG TABLET PO SCH (21:00)
[2020-02-17] MEDS ORDERED: SODIUM CHLORIDE 0.9% 2,000 ML IV NR (21:45)
[2020-02-17] MEDS ORDERED: ALBUMIN HUMAN 25GM/100ML (25%) IV NR (22:00)
[2020-02-17] MEDS ORDERED: SODIUM CHLORIDE 0.9% 1,000 ML IV PRN (22:15)
[2020-02-17] MEDS: MEROPENEM 500 MG in SODIUM CHLORIDE 0.9% 50 ML IV SCH (23:16)
[2020-02-18] VITALS (32 sets, daily range): BP systolic 88–152; BP diastolic 43–80
[2020-02-18] MEDS ORDERED: INSULIN REGULAR (HUMULIN R) 300UNITS/3ML IV ONE (01:30)
[2020-02-18] MEDS ORDERED: SODIUM POLYSTYRENE SULFONATE 15 G/60 ML BOT PO ONE (01:30)
[2020-02-18] MEDS ORDERED: SODIUM BICARBONATE 8.4% 1 MEQ/ML 50ML SYR IV ONE (01:30)
[2020-02-18] MEDS ORDERED: ALBUTEROL (0.083%) 2.5MG/3ML NEB HHN ONE (01:30)
[2020-02-18] MEDS ORDERED: DEXTROSE 50% WATER 50ML SYRINGE IV ONE (01:30)
[2020-02-18] MEDS ORDERED: SODIUM BICARBONATE 8.4% 1 MEQ/ML 50ML SYR IV SCH ×2 (02:00→13:30)
[2020-02-18] MEDS ORDERED: ASCO100T12 MT (05:06)
[2020-02-18] MEDS ORDERED: CLON0.1T MT (05:06)
[2020-02-18] MEDS ORDERED: LACT296L PO (05:06)
[2020-02-18] MEDS ORDERED: [UNRECOGNIZED DRUG - CODE] PO (05:06)
[2020-02-18] MEDS ORDERED: MULT-1146 MT (05:06)
[2020-02-18] MEDS ORDERED: BRIM10DR2 LEFTEYE (05:06)
[2020-02-18] MEDS ORDERED: MEGE400O23 PO (05:06)
[2020-02-18] MEDS ORDERED: MOM PO (05:06)
[2020-02-18] MEDS ORDERED: TOPUD MT (05:06)
[2020-02-18] MEDS ORDERED: AMLO10TA80 MT (05:06)
[2020-02-18] MEDS ORDERED: HYDR-4133 PO (05:06)
[2020-02-18] MEDS ORDERED: CLOP75TA4 MT (05:06)
[2020-02-18] MEDS ORDERED: INSU100I28 SQ (05:06)
[2020-02-18] MEDS ORDERED: BISA10SU62 RC (05:06)
[2020-02-18] MEDS ORDERED: DORZ10DR17 OP (05:06)
[2020-02-18] MEDS ORDERED: FAMO-135 PO (05:06)
[2020-02-18] MEDS ORDERED: BIMA2.5D4 EACHEYE (05:06)
[2020-02-18] MEDS ORDERED: DOCU-150 MT (05:06)
[2020-02-18] MEDS: DEXT 5%/LACTATED RINGERS 1,000 ML IV SCH (06:18)
[2020-02-18 06:52] LABS: CHLORIDE 114 mEq/L (98-107)
[2020-02-18 06:55] LABS: HEMATOCRIT. 22.8 % (36.0-48.0); HEMOGLOBIN. 7.1 g/dL (12.0-16.0); MEAN CORPUSCULAR HEMOGLOBIN 27.1 pg (28.0-32.0); MEAN CORPUSCULAR VOLUME 87.1 fL (81.0-99.0); MEAN PLATELET VOLUME 9.5 fl (7.4-10.4); PLATELET 241 x1000/uL (130-400); RED BLOOD CELL COUNT 2.61 mill/uL (4.2-5.4); RED CELL DISTRIBUTION WIDTH 17.7 % (11.6-14.6)
[2020-02-18] MEDS: ZINC SULFATE 220 MG ( 50 ) CAPSULE PO SCH (08:05)
[2020-02-18] MEDS: PANTOPRAZOLE SODIUM 40 MG/VIAL IV SCH (08:05)
[2020-02-18] MEDS: MEROPENEM 500 MG in SODIUM CHLORIDE 0.9% 50 ML IV SCH ×2 (08:05→18:01)
[2020-02-18] MEDS: ASCORBIC ACID 500 MG TABLET PO SCH ×2 (08:06→20:26)
[2020-02-18 08:58] LABS: BG BASE EXCESS -17.7 mmol/L (-2.0-2.0); BG DEOXYHEMOGLOBIN 1.5 % (0.0-5.0); BG FRACTION INSPIRED OXYGEN 21; BG HCO3 ACT 7.4 mmol/L (22.0-26.0); BG METHEMOGLOBIN 0.3 % (0.0-1.5); BG OXYGEN SATURATION 98.5 % (92.0-98.5); BG OXYHEMOGLOBIN 96.2 % (94.0-97.0); BG PCO2 16.5 mmHg (35.0-45.0); BG PH 7.269 (7.350-7.450); BG PO2 131.7 mmHg (75.0-100.0); BG TOTAL HEMOGLOBIN 7.5 g/dL (12.0-18.0); BG VENT MODE ROOM AIR
[2020-02-18] MEDS ORDERED: DEXTROSE 50% WATER 50ML SYRINGE IV PRN ×3 (10:15→10:30)
[2020-02-18] MEDS ORDERED: BLOOD SUGAR DIAGNOSTIC STRIP TEST SCH ×2 (10:15→10:30)
[2020-02-18] MEDS: INSULIN REGULAR (DRIP) 100 UNITS in SODIUM CHLORIDE 0.9% 99 ML IV SCH ×2 (10:53→21:31)
[2020-02-18] MEDS: BLOOD SUGAR DIAGNOSTIC STRIP TEST SCH ×13 (10:54→23:01)
[2020-02-18] MEDS ORDERED: SODIUM CHLORIDE 0.9% 1,000 ML IV SCH (11:00)
[2020-02-18] MEDS ORDERED: INSULIN REGULAR (DRIP) 100 UNITS in SODIUM CHLORIDE 0.9% 100 ML IV SCH (11:00)
[2020-02-18] MEDS ORDERED: LIDOCAINE HCL 1% 20ML VIAL (Pyxis) INJ ONE (11:15)
[2020-02-18] MEDS ORDERED: SODIUM BICARBONATE 4% (2.4MEQ) 5ML VIAL IV ONE (11:15)
[2020-02-18 11:44] LABS: TOTAL IRON BINDING CAPACITY 104 ug/dL (250-450)
[2020-02-18 12:13] LABS: FOLIC ACID (FOLATE) SERUM 17.5 ng/mL (>5.38)
[2020-02-18] MEDS ORDERED: ALBUMIN HUMAN 25GM/100ML (25%) IV SCH (13:30)
[2020-02-18] MEDS: DEXTROSE 5% IV SCH ×2 (14:37→23:01)
[2020-02-18] MEDS: WATER IV SCH ×2 (14:37→23:01)
[2020-02-18] MEDS: SODIUM BICARBONATE IV SCH ×2 (14:37→23:01)
[2020-02-18 15:29] LABS: PLATELET ESTIMATE NORMAL
[2020-02-18] MEDS ORDERED: AMIODARONE HCL 900 MG in DEXT 5% WATER 482 ML IV SCH (18:00)
[2020-02-18] MEDS ORDERED: AMIODARONE HCL 150 MG in DEXT 5% WATER 100 ML IV ONE (18:00)
[2020-02-18] MEDS ORDERED: KCL 20MEQ/100ML PREMIX 100 ML IV NR (19:00)
[2020-02-18] MEDS: ENOXAPARIN 30MG/0.3ML SYR SUBCUT SCH (20:26)
[2020-02-19] VITALS (81 sets, daily range): BP systolic 56–209; BP diastolic 37–115
[2020-02-19] MEDS: BLOOD SUGAR DIAGNOSTIC STRIP TEST SCH ×19 (00:26→18:36)
[2020-02-19] MEDS: DEXTROSE 50% WATER 50ML SYRINGE IV PRN ×2 (00:27→06:33)
[2020-02-19] MEDS: MEROPENEM 500 MG in SODIUM CHLORIDE 0.9% 50 ML IV SCH ×2 (06:09→18:47)
[2020-02-19 06:15] LABS: HEMOGLOBIN. 8.8 g/dL (12.0-16.0); MEAN PLATELET VOLUME 9.4 fl (7.4-10.4); PLATELET 181 x1000/uL (130-400); RED BLOOD CELL COUNT 3.14 mill/uL (4.2-5.4); RED CELL DISTRIBUTION WIDTH 16.2 % (11.6-14.6)
[2020-02-19 06:17] LABS: CHLORIDE 111 mEq/L (98-107)
[2020-02-19 06:22] LABS: PHOSPHORUS 1.3 mg/dL (2.5-4.9)
[2020-02-19 06:25] LABS: CREATINE KINASE 53 IU/L (26-192)
[2020-02-19 06:26] LABS: TOTAL IRON BINDING CAPACITY 124 ug/dL (250-450)
[2020-02-19 06:52] LABS: FERRITIN 1428 ng/mL (10-291)
[2020-02-19] MEDS: DEXTROSE 5% IV SCH ×2 (06:53→14:12)
[2020-02-19] MEDS: SODIUM BICARBONATE IV SCH ×2 (06:53→14:12)
[2020-02-19] MEDS: WATER IV SCH ×2 (06:53→14:12)
[2020-02-19 07:39] LABS: VITAMIN B12 SERUM 1011 pg/mL (211-911)
[2020-02-19] MEDS: ZINC SULFATE 220 MG ( 50 ) CAPSULE PO SCH (09:00)
[2020-02-19] MEDS: ASCORBIC ACID 500 MG TABLET PO SCH ×2 (09:00→20:39)
[2020-02-19] MEDS: AMLODIPINE 10MG TABLET PO SCH (09:00)
[2020-02-19] MEDS: METOPROLOL TARTRATE 25MG TABLET PO SCH ×2 (09:00→20:39)
[2020-02-19 09:01] LABS: PLATELET ESTIMATE NORMAL
[2020-02-19] MEDS: PANTOPRAZOLE SODIUM 40 MG/VIAL IV SCH (09:07)
[2020-02-19] MEDS ORDERED: METOPROLOL TARTRATE 5MG/5ML VIAL IV PRN (11:45)
[2020-02-19] MEDS ORDERED: INSULIN GLARGINE UD 100 UNITS/ML SYR SUBCUT SCH (12:00)
[2020-02-19] MEDS ORDERED: DEXTROSE 50% WATER 50ML SYRINGE IV PRN ×2 (12:15→19:45)
[2020-02-19] MEDS ORDERED: ALBUMIN HUMAN 25GM/100ML (25%) IV SCH (14:15)
[2020-02-19] MEDS ORDERED: MIDAZOLAM HCL 5 MG/5 ML VIAL ONE (15:11)
[2020-02-19] MEDS ORDERED: FENTANYL CITRATE/PF 50MCG/ML 2ML VIAL ONE (15:11)
[2020-02-19] MEDS ORDERED: MIDAZOLAM HCL 5 MG/5 ML VIAL IV PRN (15:11)
[2020-02-19] MEDS ORDERED: FENTANYL CITRATE/PF 50MCG/ML 2ML VIAL IV PRN (15:11)
[2020-02-19] MEDS ORDERED: POTASSIUM PHOS,M-BASIC-D-BASIC 30 MMOL in SODIUM CHLORIDE 0.9% 500 ML IV SCH (16:00)
[2020-02-19] MEDS: ENOXAPARIN 30MG/0.3ML SYR SUBCUT SCH (20:39)
[2020-02-19] MEDS ORDERED: INSULIN LISPRO 100 UNITS/ML SUBCUT SCH (21:00)
[2020-02-20] VITALS (35 sets, daily range): BP systolic 85–130; BP diastolic 42–69
[2020-02-20] MEDS: BLOOD SUGAR DIAGNOSTIC STRIP TEST SCH ×5 (00:27→23:33)
[2020-02-20] MEDS: INSULIN LISPRO 100 UNITS/ML SUBCUT SCH ×5 (00:27→23:33)
[2020-02-20] MEDS: DEXTROSE 5% IV SCH (00:27)
[2020-02-20] MEDS: SODIUM BICARBONATE IV SCH (00:27)
[2020-02-20] MEDS: WATER IV SCH (00:27)
[2020-02-20 05:02] LABS: BASOPHILS % 0.3 % (0.0-2.0); EOSINOPHILS % 0.2 % (0.0-5.0); HEMATOCRIT. 25.8 % (36.0-48.0); HEMOGLOBIN. 8.6 g/dL (12.0-16.0); LYMPHOCYTES % 11.9 % (20.0-50.0); MEAN CORPUSCULAR HEMOGLOBIN 27.9 pg (28.0-32.0); MEAN CORPUSCULAR VOLUME 83.6 fL (81.0-99.0); MEAN PLATELET VOLUME 8.9 fl (7.4-10.4); MONOCYTES % 6.1 % (2.0-8.0); NEUTROPHILS % 81.5 % (40.0-76.0); PLATELET 112 x1000/uL (130-400); RED BLOOD CELL COUNT 3.09 mill/uL (4.2-5.4); RED CELL DISTRIBUTION WIDTH 16.2 % (11.6-14.6)
[2020-02-20] MEDS: MEROPENEM 500 MG in SODIUM CHLORIDE 0.9% 50 ML IV SCH ×2 (05:10→18:04)
[2020-02-20 05:20] LABS: PHOSPHORUS 4.8 mg/dL (2.5-4.9)
[2020-02-20] MEDS: ASCORBIC ACID 500 MG TABLET PO SCH ×2 (08:55→21:05)
[2020-02-20] MEDS: METOPROLOL TARTRATE 25MG TABLET PO SCH ×2 (08:55→21:00)
[2020-02-20] MEDS: AMLODIPINE 10MG TABLET PO SCH (08:56)
[2020-02-20] MEDS: PANTOPRAZOLE SODIUM 40 MG/VIAL IV SCH (08:56)
[2020-02-20] MEDS: ZINC SULFATE 220 MG ( 50 ) CAPSULE PO SCH (08:56)
[2020-02-20] MEDS ORDERED: MAGNESIUM 2 G PREMIX 50 ML IV NR (09:00)
[2020-02-20] MEDS: SODIUM CHLORIDE 0.45% 1,000 ML IV SCH ×2 (09:27→18:04)
[2020-02-20] MEDS: INSULIN GLARGINE UD 100 UNITS/ML SYR SUBCUT SCH (09:27)
[2020-02-20] MEDS ORDERED: INFLUENZA VACCINE 05/PF 0.5 ML VIAL IM ONE (18:00)
[2020-02-20] MEDS: APIXABAN 2.5 MG TABLET PO SCH (18:04)
[2020-02-20] MEDS: KETOROLAC 15MG/ML VIAL IV PRN (21:09)
[2020-02-21] VITALS (20 sets, daily range): BP systolic 85–124; BP diastolic 40–70
[2020-02-21] MEDS: SODIUM CHLORIDE 0.45% 1,000 ML IV SCH ×2 (00:11→10:40)
[2020-02-21] MEDS: BLOOD SUGAR DIAGNOSTIC STRIP TEST SCH ×4 (05:13→23:42)
[2020-02-21] MEDS: APIXABAN 2.5 MG TABLET PO SCH ×2 (05:13→18:00)
[2020-02-21] MEDS: INSULIN LISPRO 100 UNITS/ML SUBCUT SCH ×3 (05:13→18:00)
[2020-02-21 05:23] LABS: BASOPHILS % 0.2 % (0.0-2.0); EOSINOPHILS % 0.5 % (0.0-5.0); LYMPHOCYTES % 15.5 % (20.0-50.0); MEAN CORPUSCULAR VOLUME 83.9 fL (81.0-99.0); MEAN PLATELET VOLUME 10.1 fl (7.4-10.4); MONOCYTES % 6.8 % (2.0-8.0); PLATELET 105 x1000/uL (130-400); RED BLOOD CELL COUNT 3.22 mill/uL (4.2-5.4); RED CELL DISTRIBUTION WIDTH 16.1 % (11.6-14.6)
[2020-02-21 05:35] LABS: PHOSPHORUS 3.3 mg/dL (2.5-4.9)
[2020-02-21] MEDS: METOPROLOL TARTRATE 25MG TABLET PO SCH ×2 (09:00→21:00)
[2020-02-21] MEDS: ASCORBIC ACID 500 MG TABLET PO SCH ×2 (10:36→22:20)
[2020-02-21] MEDS: PANTOPRAZOLE SODIUM 40 MG/VIAL IV SCH (10:36)
[2020-02-21] MEDS: ZINC SULFATE 220 MG ( 50 ) CAPSULE PO SCH (10:37)
[2020-02-21] MEDS: INSULIN GLARGINE UD 100 UNITS/ML SYR SUBCUT SCH (10:38)
[2020-02-21] MEDS: SODIUM CHLORIDE 0.9% 1,000 ML IV SCH (18:00)
[2020-02-21] MEDS ORDERED: DEXTROSE 50% WATER 50ML SYRINGE IV NR (18:27)
[2020-02-22] VITALS: BP 101/47
[2020-02-22] MEDS: KETOROLAC 15MG/ML VIAL IV PRN (03:14)
[2020-02-22 04:00] VITALS: BP 126/63
[2020-02-22] MEDS: INSULIN LISPRO 100 UNITS/ML SUBCUT SCH ×5 (06:00→20:55)
[2020-02-22] MEDS: BLOOD SUGAR DIAGNOSTIC STRIP TEST SCH ×4 (06:18→20:55)
[2020-02-22] MEDS: APIXABAN 2.5 MG TABLET PO SCH ×2 (06:58→18:08)
[2020-02-22] MEDS: SODIUM CHLORIDE 0.9% 1,000 ML IV SCH ×2 (07:03→18:09)
[2020-02-22 08:00] VITALS: BP 112/50
[2020-02-22] MEDS: INSULIN GLARGINE UD 100 UNITS/ML SYR SUBCUT SCH (09:53)
[2020-02-22] MEDS: PANTOPRAZOLE SODIUM 40 MG/VIAL IV SCH (09:54)
[2020-02-22] MEDS: METOPROLOL TARTRATE 25MG TABLET PO SCH ×2 (09:55→21:00)
[2020-02-22] MEDS: ZINC SULFATE 220 MG ( 50 ) CAPSULE PO SCH (09:55)
[2020-02-22] MEDS: ASCORBIC ACID 500 MG TABLET PO SCH ×2 (09:55→21:40)
[2020-02-22 12:00] VITALS: BP 103/50
[2020-02-22 16:00] VITALS: BP 116/54
[2020-02-22 16:18] LABS: BASOPHILS % 0.7 % (0.0-2.0); HEMATOCRIT. 27.3 % (36.0-48.0); LYMPHOCYTES % 14.6 % (20.0-50.0); MEAN CORPUSCULAR HEMOGLOBIN 27.8 pg (28.0-32.0); MEAN CORPUSCULAR VOLUME 84.7 fL (81.0-99.0); MONOCYTES % 8.3 % (2.0-8.0); NEUTROPHILS % 75.4 % (40.0-76.0); PLATELET 97 x1000/uL (130-400); RED BLOOD CELL COUNT 3.23 mill/uL (4.2-5.4); RED CELL DISTRIBUTION WIDTH 15.9 % (11.6-14.6)
[2020-02-22 16:19] LABS: PHOSPHORUS 3.7 mg/dL (2.5-4.9)
[2020-02-22] MEDS: DEXTROSE 50% WATER 50ML SYRINGE IV PRN (18:08)
[2020-02-22 20:00] VITALS: BP 106/57
[2020-02-22] MEDS ORDERED: KETOROLAC 15MG/ML VIAL IV PRN (22:30)
[2020-02-23] VITALS: BP 113/51
[2020-02-23 04:00] VITALS: BP 137/56
[2020-02-23] MEDS: APIXABAN 2.5 MG TABLET PO SCH (05:03)
[2020-02-23] MEDS: SODIUM CHLORIDE 0.9% 1,000 ML IV SCH (05:04)
[2020-02-23] MEDS: BLOOD SUGAR DIAGNOSTIC STRIP TEST SCH ×4 (05:48→21:03)
[2020-02-23] MEDS: INSULIN LISPRO 100 UNITS/ML SUBCUT SCH ×4 (05:58→21:00)
[2020-02-23 06:09] LABS: BASOPHILS % 0.6 % (0.0-2.0); EOSINOPHILS % 1.1 % (0.0-5.0); HEMOGLOBIN. 8.2 g/dL (12.0-16.0); LYMPHOCYTES % 10.9 % (20.0-50.0); MEAN CORPUSCULAR HEMOGLOBIN 28.1 pg (28.0-32.0); MEAN CORPUSCULAR VOLUME 85.4 fL (81.0-99.0); MEAN PLATELET VOLUME 9.4 fl (7.4-10.4); MONOCYTES % 7.4 % (2.0-8.0); PLATELET 75 x1000/uL (130-400); RED BLOOD CELL COUNT 2.92 mill/uL (4.2-5.4); RED CELL DISTRIBUTION WIDTH 15.9 % (11.6-14.6)
[2020-02-23 06:28] LABS: PHOSPHORUS 3.8 mg/dL (2.5-4.9)
[2020-02-23 08:00] VITALS: BP 124/50
[2020-02-23] MEDS: ZINC SULFATE 220 MG ( 50 ) CAPSULE PO SCH (08:51)
[2020-02-23] MEDS: ASCORBIC ACID 500 MG TABLET PO SCH ×2 (08:51→20:40)
[2020-02-23] MEDS: PANTOPRAZOLE SODIUM 40 MG/VIAL IV SCH (08:51)
[2020-02-23] MEDS: METOPROLOL TARTRATE 25MG TABLET PO SCH ×2 (08:51→20:42)
[2020-02-23] MEDS: INSULIN GLARGINE UD 100 UNITS/ML SYR SUBCUT SCH (10:33)
[2020-02-23] MEDS ORDERED: SODIUM POLYSTYRENE SULFONATE 15 G/60 ML BOT GT NR (11:30)
[2020-02-23 12:04] VITALS: BP 154/60
[2020-02-23] MEDS: KETOROLAC 15MG/ML VIAL IV PRN ×2 (15:32→21:04)
[2020-02-23 16:00] VITALS: BP 168/65
[2020-02-23] MEDS: CLONIDINE 0.1MG TABLET PO PRN (18:30)
[2020-02-23] MEDS: DEXTROSE 50% WATER 50ML SYRINGE IV PRN (18:42)
[2020-02-23 20:00] VITALS: BP 141/62
[2020-02-23] MEDS: DEXT 5%/0.9% NACL 1,000 ML IV SCH (22:03)
[2020-02-24] VITALS (8 sets, daily range): BP systolic 109–160; BP diastolic 40–67
[2020-02-24] MEDS: DEXT 5%/0.9% NACL 1,000 ML IV SCH (02:53)
[2020-02-24] MEDS: KETOROLAC 15MG/ML VIAL IV PRN (05:17)
[2020-02-24] MEDS ORDERED: SODIUM CHLORIDE 0.9% 1,000 ML IV SCH (06:30)
[2020-02-24] MEDS: BLOOD SUGAR DIAGNOSTIC STRIP TEST SCH ×4 (06:34→21:00)
[2020-02-24] MEDS: INSULIN LISPRO 100 UNITS/ML SUBCUT SCH ×4 (06:38→22:58)
[2020-02-24 07:49] LABS: BASOPHILS % 0.3 % (0.0-2.0); EOSINOPHILS % 0.8 % (0.0-5.0); HEMOGLOBIN. 8.5 g/dL (12.0-16.0); LYMPHOCYTES % 9.1 % (20.0-50.0); MEAN CORPUSCULAR HEMOGLOBIN 27.8 pg (28.0-32.0); MEAN CORPUSCULAR VOLUME 85.4 fL (81.0-99.0); MEAN PLATELET VOLUME 9.3 fl (7.4-10.4); MONOCYTES % 8.4 % (2.0-8.0); NEUTROPHILS % 81.4 % (40.0-76.0); PLATELET 105 x1000/uL (130-400); RED BLOOD CELL COUNT 3.04 mill/uL (4.2-5.4)
[2020-02-24 08:06] LABS: PHOSPHORUS 4.4 mg/dL (2.5-4.9)
[2020-02-24] MEDS: INSULIN GLARGINE UD 100 UNITS/ML SYR SUBCUT SCH (10:12)
[2020-02-24] MEDS: ZINC SULFATE 220 MG ( 50 ) CAPSULE PO SCH (10:13)
[2020-02-24] MEDS: PANTOPRAZOLE SODIUM 40 MG/VIAL IV SCH (10:13)
[2020-02-24] MEDS: ASCORBIC ACID 500 MG TABLET PO SCH ×2 (10:13→22:57)
[2020-02-24] MEDS: METOPROLOL TARTRATE 25MG TABLET PO SCH ×2 (10:19→22:57)
[2020-02-24] MEDS ORDERED: DEXT 5%/0.9% NACL 1,000 ML IV SCH (17:15)
[2020-02-25] VITALS: BP 171/50
[2020-02-25] MEDS: CLONIDINE 0.1MG TABLET PO PRN (00:47)
== END 2020-02-25 01:10 | DRG 720 ==
LOC: ER 12:24 → 6WST 16:34 → EDBEDREQSVC 16:38 → ENRESERV 19:03 → CVICU 02-18 10:17 → 8WST 02-21 08:00
PROVIDERS: ADMIT Internal Medicine; ATTEND Internal Medicine
PROC: 05HY33Z Insertion of Infusion Device into Upper Vein, Percutaneous Approach (ICD-10-PCS; 2020-02-18)
PROC: B54MZZA Ultrasonography of Right Upper Extremity Veins, Guidance (ICD-10-PCS; 2020-02-18)
PROC: 30233R1 Transfusion of Nonautologous Platelets into Peripheral Vein, Percutaneous Approach (ICD-10-PCS; 2020-02-18)
PROC: 02H633Z Insertion of Infusion Device into Right Atrium, Percutaneous Approach (ICD-10-PCS; principal; 2020-02-19)
PROC: 0DH63UZ Insertion of Feeding Device into Stomach, Percutaneous Approach (ICD-10-PCS; 2020-02-19)
DX: A41.51 Sepsis due to Escherichia coli [E. coli] (principal); R65.20 Severe sepsis without septic shock; N17.0 Acute kidney failure with tubular necrosis; E43 Unspecified severe protein-calorie malnutrition; E11.10 Type 2 diabetes mellitus with ketoacidosis without coma; D50.9 Iron deficiency anemia, unspecified; G92 Toxic encephalopathy; E83.52 Hypercalcemia; E86.1 Hypovolemia; E87.5 Hyperkalemia; D63.8 Anemia in other chronic diseases classified elsewhere; N39.0 Urinary tract infection, site not specified; F03.90 Unspecified dementia, unspecified severity, without behavioral disturbance, psychotic disturbance, mood disturbance, and anxiety; I25.10 Atherosclerotic heart disease of native coronary artery without angina pectoris; M19.90 Unspecified osteoarthritis, unspecified site; L85.3 Xerosis cutis; L89.156 Pressure-induced deep tissue damage of sacral region; I48.20 Chronic atrial fibrillation, unspecified; I82.621 Acute embolism and thrombosis of deep veins of right upper extremity; I13.0 Hypertensive heart and chronic kidney disease with heart failure and stage 1 through stage 4 chronic kidney disease, or unspecified chronic kidney disease; I50.32 Chronic diastolic (congestive) heart failure; N18.9 Chronic kidney disease, unspecified; E11.22 Type 2 diabetes mellitus with diabetic chronic kidney disease; D25.9 Leiomyoma of uterus, unspecified; Z20.828 Contact with and (suspected) exposure to other viral communicable diseases; E86.0 Dehydration; Z68.25 Body mass index [BMI] 25.0-25.9, adult; Z88.0 Allergy status to penicillin; Z74.01 Bed confinement status; Z79.4 Long term (current) use of insulin; Z82.49 Family history of ischemic heart disease and other diseases of the circulatory system; Z83.3 Family history of diabetes mellitus
CPT/HCPCS: 36415; 36600; 71045; 76770; 76856; 76937; 80048; 80053; 81003; 82010; 82375; 82550; 82607; 82728; 82746; 82805; 82962; 83036; 83540; 83550; 83605; 83735; 84100; 84134; 85025; 86850; 86900; 86920; 87077; 87186; 87426; 90686; 92610; 93005; 93306; 93923; 93970; 93971; 94644; 97162; 99285; C1725; C9113; J0282; J1650; J1815; J1885; J2185; J2250; J2405; J3010; J3475; J3480; J3490; J7030; J7040; J7042; J7050; J7060; J7070; P9016; P9047